=== PATIENT | male | born 1985 | race African-American/Black ===

== ENCOUNTER 2016-07-16 18:03 | Emergency (ER) | payer MEDICAID ==
--- NOTE | 2016-07-16 18:16 | ED Physician Chart ---
Chief Complaint/HPI - Patient Information Date Seen:: 07/16/16 Time Seen:: 18:06 Chief Complaint:: abdominal pain History of Present Illness:: 31-year-old male history of paraplegia, wheelchair bound, complains of acute, worsening, severe, aching, nonradiating, right lower quadrant abdominal pain times one week. Has associated low back pain and subjective fevers. Allergies:: Allergies Allergy/AdvReac Type Severity Reaction Status Date / Time No Known Allergies Allergy Verified 12/30/15 13:12 Historian:: Patient Review:: Nurse's Note Reviewed Review of Systems - Review of Systems Other: Complete system review otherwise unremarkable except as noted in HPI. Past Medical History - Past Medical History Past Medical History: Other (paraplegia) Family History: None Social History: Non Smoker, No Alcohol, No Drug Use, Other Surgical History: other Psychiatricy History: None Medication: Reviewed Family Medical History - Family Member Mother Ethnicity: Non- Living Status: Still Living Hx Family Cancer: No Hx Family Coronary Artery Disease: No Hx Family Congestive Heart Failure: No Hx Family Hypertension: Yes Physical Exam - Physical Examination Other:: INITIAL VITAL SIGNS: Reviewed by me GENERAL: Alert and interactive. No acute distress HEAD: Head is normocephalic and atraumatic EYES: EOMI. . No scleral icterus. No conjunctival injection ENT: Moist mucous membranes. NECK: Supple. No masses. Full range of motion RESPIRATORY: No tachypnea. Clear breath sounds bilaterally. No wheezing, rales, or rhonchi CV: Regular rate and rhythm. No murmurs, rubs, or gallops ABDOMEN: Soft, non-distended, tenderness to palpation right lower quadrant. No guarding. No rebound. No masses. EXTREMITIES: No deformity. No cyanosis. No edema. SKIN: Warm and dry. No obvious rashes. NEUROLOGIC: Alert and oriented. Face is symmetric. Speech is normal. Moves upper extremities equally, lower extremities paralyzed, upper Motor and sensory distally intact. Labs/Radiology/EKG Results - Lab Results Results: Lab Results 07/16/16 07/16/16 07/16/16 Range/Units 18:20 18:45 18:45 WBC 16.7 H D (4.8-10.8) Th/cmm RBC 4.82 (4.30-5.70) Mil/cmm Hgb 12.6 L (13.2-17.3) gm/dL Hct 38.4 L (39.0-49.0) % MCV 79.8 L (80-99) fl MCH 26.1 (26.0-30.0) pg MCHC Differential 32.7 (28.0-36.0) pg RDW 13.4 (11.5-20.0) % Plt Count 228 (150-400) Th/cmm MPV 8.9 fl Neutrophils % 84.8 H (40.0-80.0) % Lymphocytes % 9.3 L (20.0-50.0) % Monocytes % 5.4 (2.0-10.0) % Eosinophils % 0.5 (0.0-5.0) % Basophils % 0.0 (0.0-2.0) % Sodium 134 L (136-145) mEq/L Potassium 3.5 (3.5-5.1) mEq/L Chloride 108 H (98-107) mEq/L Carbon Dioxide 22.5 (21.0-31.0) mEq/L Anion Gap 7.0 (7.0-16.0) BUN 6 L (7-25) mg/dL Creatinine 0.6 L (0.7-1.3) mg/dL Est GFR ( Amer) > 60.0 (>90) ml/min Est GFR (Non-Af Amer) > 60.0 ml/min BUN/Creatinine Ratio 10.0 Glucose 100 (70-105) mg/dL Whole Bld Lactic Acid (0.60-2.00) mmol/L Calcium 9.2 (8.6-10.3) mg/dL Total Bilirubin 1.3 H (0.3-1.0) mg/dL AST 13 (13-39) U/L ALT 19 (7-52) U/L Alkaline Phosphatase 64 (34-104) U/L Total Protein 7.7 (6.0-8.3) gm/dL Albumin 4.0 L (4.2-5.5) gm/dL Globulin 3.7 gm/dL Albumin/Globulin Ratio 1.1 (1.0-1.8) Amylase (29-103) U/L Lipase (11-82) U/L Urine Source CLEAN C Urine Color YELLOW Urine Clarity HAZY (CLEAR) Urine pH 6.0 Ur Specific Reading 1.020 (1.005-1.030) Urine Protein 30 H (NEGATIVE) mg/dL Urine Glucose (UA) NEGATIVE (NEGATIVE) mg/dL Urine Ketones 40 H (NEGATIVE) mg/dL Urine Blood TRACE (NEGATIVE) Urine Nitrate POSITIVE H (NEGATIVE) Urine Bilirubin NEGATIVE (NEGATIVE) Urine Urobilinogen 1.0 (0.2 - 1.0) E.U./dL Ur Leukocyte Esterase NEGATIVE (NEGATIVE) Urine RBC 5-10 H (0-5) /hpf Urine WBC 2-5 H (0-5) /hpf Ur Epithelial Cells NONE SEEN (FEW) /lpf Urine Bacteria MODERATE (NONE SEEN) /hpf 07/16/16 07/16/16 Range/Units 18:45 18:45 WBC (4.8-10.8) Th/cmm RBC (4.30-5.70) Mil/cmm Hgb (13.2-17.3) gm/dL Hct (39.0-49.0) % MCV (80-99) fl MCH (26.0-30.0) pg MCHC Differential (28.0-36.0) pg RDW (11.5-20.0) % Plt Count (150-400) Th/cmm MPV fl Neutrophils % (40.0-80.0) % Lymphocytes % (20.0-50.0) % Monocytes % (2.0-10.0) % Eosinophils % (0.0-5.0) % Basophils % (0.0-2.0) % Sodium (136-145) mEq/L Potassium (3.5-5.1) mEq/L Chloride (98-107) mEq/L Carbon Dioxide (21.0-31.0) mEq/L Anion Gap (7.0-16.0) BUN (7-25) mg/dL Creatinine (0.7-1.3) mg/dL Est GFR ( Amer) (>90) ml/min Est GFR (Non-Af Amer) ml/min BUN/Creatinine Ratio Glucose (70-105) mg/dL Whole Bld Lactic Acid 0.62 (0.60-2.00) mmol/L Calcium (8.6-10.3) mg/dL Total Bilirubin (0.3-1.0) mg/dL AST (13-39) U/L ALT (7-52) U/L Alkaline Phosphatase (34-104) U/L Total Protein (6.0-8.3) gm/dL Albumin (4.2-5.5) gm/dL Globulin gm/dL Albumin/Globulin Ratio (1.0-1.8) Amylase 16 L (29-103) U/L Lipase 6 L (11-82) U/L Urine Source Urine Color Urine Clarity (CLEAR) Urine pH Ur Specific Reading (1.005-1.030) Urine Protein (NEGATIVE) mg/dL Urine Glucose (UA) (NEGATIVE) mg/dL Urine Ketones (NEGATIVE) mg/dL Urine Blood (NEGATIVE) Urine Nitrate (NEGATIVE) Urine Bilirubin (NEGATIVE) Urine Urobilinogen (0.2 - 1.0) E.U./dL Ur Leukocyte Esterase (NEGATIVE) Urine RBC (0-5) /hpf Urine WBC (0-5) /hpf Ur Epithelial Cells (FEW) /lpf Urine Bacteria (NONE SEEN) /hpf - Radiology Results Results: CT abdomen pelvis prelim report per radiology [place] bilateral pleural effusions. Etiology uncertain Small fat-containing umbilical hernia Otherwise NAD ED Septic Shock - . Is Septic Shock (SBP<90, OR Lactate>4 mmol\L) present?: No Reassessment (Disposition) - Reassessment Reassessment:: The patient's blood pressure was elevated (>120/80) but appears stable without evidence of hypertensive emergency or urgency. The patient was counseled about the risks hypertension urged to pursue outpatient monitoring and therapy within a week with her primary care physician. Patient has UTI. Provided Cipro here in the ER. He is self cathetering himself. We will do Cipro 500 mg by mouth twice a day 14 days. Follow-up PCP 1-2 days. Gave return to ER precautions. Patient understands and agrees with the plan. - Diagnosis Diagnosis:: Urinary tract infection, acute, with hematuria Elevated blood pressure without the diagnosis of hypertension - Aftercare/Follow up Instructions Aftercare/Follow-Up Instructions:: Counseled pt regarding lab results/diagnosis & need follow up, Refer to Discharge Instructions Medication Prescribed:: Cipro - Patient Disposition Discharge/Transfer:: Home Time:: 19:45 Condition at Disposition:: Improved ED Discharge Plan - Patient Disposition Admit/Discharge/Transfer: PT DISCHARGED HOME Condition at Disposition: Improved Instructions: Urinary Tract Infection
[2016-07-16 18:20] VITALS: BP 132/74
[2016-07-16] MEDS ORDERED: Sodium Chloride 0.9% 1,000 ML IV ONE (18:22)
[2016-07-16] MEDS ORDERED: cefTRIAXone 1 GM in Sodium Chloride 0.9% 50 ML IV ONE (18:23)
[2016-07-16 18:55] LABS: URINE BILIRUBIN NEGATIVE (NEGATIVE); URINE COLOR YELLOW; URINE GLUCOSE (UA) NEGATIVE (NEGATIVE)
[2016-07-16 18:56] LABS: URINE BLOOD TRACE (NEGATIVE); URINE KETONE 40 mg/dL (NEGATIVE); URINE PROTEIN 30 mg/dL (NEGATIVE)
[2016-07-16 18:57] LABS: URINE BACTERIA MODERATE /hpf (NONE SEEN); URINE EPITHELIAL CELLS NONE SEEN /lpf (FEW)
[2016-07-16 19:06] LABS: % EOSINOPHILS 0.5 % (0.0-5.0); % LYMPHOCYTES 9.3 % (20.0-50.0); % MONOCYTES 5.4 % (2.0-10.0); % NEUTROPHILS 84.8 % (40.0-80.0); HEMATOCRIT 38.4 % (39.0-49.0); HEMOGLOBIN 12.6 gm/dL (13.2-17.3); MEAN CELL VOLUME 79.8 fl (80-99); MEAN CORPUSCULAR HEMOGLOBIN 26.1 pg (26.0-30.0); MEAN CORPUSCULAR HGB CONC 32.7 pg (28.0-36.0); MEAN PLATELET VOLUME 8.9 fl; NEUTROPHILE ABSOLUTE 14.1 Th/cmm (1.8-8.0); PLATELET COUNT 228 Th/cmm (150-400); RED BLOOD COUNT 4.82 Mil/cmm (4.30-5.70); RED CELL DISTRIBUTION WIDTH 13.4 % (11.5-20.0)
[2016-07-16 19:07] LABS: WHITE BLOOD COUNT 16.7 Th/cmm (4.8-10.8)
[2016-07-16] MEDS ORDERED: Hydrocodone/APAP 10 mg/325 mg Tab PO STA ×2 (19:21→19:29)
[2016-07-16 19:24] LABS: ALB/GLOB RATIO 1.1 (1.0-1.8); ALKALINE PHOSPHATASE 64 U/L (34-104); AMYLASE SERUM 16 U/L (29-103); BILIRUBIN,TOTAL 1.3 mg/dL (0.3-1.0); BUN - UREA NITROGEN 6 mg/dL (7-25); CALCIUM SERUM 9.2 mg/dL (8.6-10.3); CARBON DIOXIDE 22.5 mEq/L (21.0-31.0); CHLORIDE 108 mEq/L (98-107); CREATININE - SERUM 0.6 mg/dL (0.7-1.3); GLUCOSE 100 mg/dL (70-105); LIPASE 6 U/L (11-82); POTASSIUM SERUM 3.5 mEq/L (3.5-5.1); SGOT 13 U/L (13-39); SGPT/ALT 19 U/L (7-52); SODIUM SERUM 134 mEq/L (136-145)
[2016-07-16] MEDS ORDERED: Hydrocodone/APAP 10 mg/325 mg Tab ONE (19:31)
--- NOTE | 2016-07-17 10:17 | Diagnostic Imaging Report ---
CT abdomen and pelvis without intravenous contrast Indication: Abdominal pain Comparison: CT abdomen and pelvis on 03/09/2016, Technique: Axial images were obtained from the lung bases to the bilateral proximal femurs without IV contrast. Coronal reconstructions were made. total DLP: [id number], CTDI12.1 FINDINGS: Hypoventilatory and atelectatic changes of the lung bases are noted. Right basal passive atelectasis is noted. Assessment of the solid organs is limited due to lack of IV contrast. No evidence of focal hepatic, splenic, pancreatic, lesions. A 2.7 cm left adrenal nodule is noted as seen on previous examination with Hounsfield units areas less than 10. No evidence of hydronephrosis or nephrolithiasis. The urinary bladder is collapsed limiting its evaluation. A small fat-containing umbilical hernia is noted. Fluid-filled appendix is seen without surrounding inflammation. No free air or free fluid. Few nonspecific fluid-filled loops of small bowel are noted. Areas of heterotopic ossifications again noted surrounding the bilateral proximal femurs. IMPRESSION: Nonspecific fluid-filled loops of small bowel without evidence of small bowel obstruction. No evidence of free fluid Small fat-containing umbilical hernia. 2.7 cm left adrenal nodule seen on prior exam with Hounsfield units suggestive of a lipid rich adenoma. Please correlate with clinical findings.
== END 2016-07-16 20:15 | disposition home or self-care (01) ==
LOC: ER 18:03
DX: N39.0 Urinary tract infection, site not specified (principal); R31.9 Hematuria, unspecified; R03.0 Elevated blood-pressure reading, without diagnosis of hypertension
CPT/HCPCS: 99285; 74176; 36415; 83605; 85025; 81001; 82150; 83690; 80053; 87040 ×2; Q0162; Z7610

== ENCOUNTER 2017-08-04 21:19 | Emergency (ER) | payer MEDICAID ==
[2017-08-04 23:01] LABS: % EOSINOPHILS 4.7 % (0.0-5.0); % LYMPHOCYTES 21.8 % (20.0-50.0); % MONOCYTES 12.2 % (2.0-10.0); % NEUTROPHILS 61.3 % (40.0-80.0); EOSINOPHILE ABSOLUTE 0.3 Th/cmm (0.1-0.4); HEMATOCRIT 37.9 % (41.0-60); HEMOGLOBIN 12.2 gm/dL (12-16); LYMPHOCYTE ABSOLUTE 1.5 Th/cmm (1.5-3.0); MEAN CELL VOLUME 81.9 fl (80-99); MEAN CORPUSCULAR HEMOGLOBIN 26.4 pg (26.0-30.0); MEAN CORPUSCULAR HGB CONC 32.2 pg (28.0-36.0); MEAN PLATELET VOLUME 8.3 fl; MONOCYTE ABSOLUTE 0.8 Th/cmm (0.3-1.0); NEUTROPHILE ABSOLUTE 4.3 Th/cmm (1.8-8.0); PLATELET COUNT 271 Th/cmm (150-400); RED BLOOD COUNT 4.63 Mil/cmm (4.30-5.70); RED CELL DISTRIBUTION WIDTH 13.1 % (11.5-20.0); WHITE BLOOD COUNT 6.9 Th/cmm (4.8-10.8)
[2017-08-04 23:18] LABS: ALB/GLOB RATIO 1.2 (1.0-1.8); ALKALINE PHOSPHATASE 64 U/L (34-104); ANION GAP 7.6 (7.0-16.0); BILIRUBIN,TOTAL 0.5 mg/dL (0.3-1.0); BUN - UREA NITROGEN 8 mg/dL (7-25); CALCIUM SERUM 9.2 mg/dL (8.6-10.3); CHLORIDE 108 mEq/L (98-107); CREATININE - SERUM 0.6 mg/dL (0.7-1.3); GFR AFRICAN-AMERICAN > 60.0 ml/min (>90); GFR NON AFRICAN-AMERICAN > 60.0 ml/min; GLUCOSE 100 mg/dL (70-105); POTASSIUM SERUM 3.6 mEq/L (3.5-5.1); SGOT 19 U/L (13-39); SGPT/ALT 28 U/L (7-52); SODIUM SERUM 137 mEq/L (136-145); TOTAL PROTEIN,SERUM 7.3 gm/dL (6.0-8.3)
[2017-08-04] MEDS ORDERED: Levofloxacin 750mg/150mL 750 MG/150 ML BAG IV ONE ×2 (23:29→23:44)
[2017-08-05 01:48] LABS: INF A SCREEN NEG FOR INF A; INF B SCREEN NEG FOR INF B
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
== END 2017-08-05 00:29 | disposition home or self-care (01) ==
LOC: ER 21:19
DX: J06.9 Acute upper respiratory infection, unspecified (principal); J20.9 Acute bronchitis, unspecified
CPT/HCPCS: 99284; 36415; 87804 ×2; 85025; 80053; J1956; Z7502